=== PATIENT | female | born 1970 | race Caucasian/White ===

== ENCOUNTER 2021-10-04 09:49 | Emergency (ER) | payer BC ==
--- OUTSIDE RECORDS SUMMARY | 2021-10-04 09:52 | XMS REPORT | Continuity of Care Document ---
:1970 Author Organization [facility] t Address [address] [place] [address] Care Team Providers Name Role Phone RADIOLOGY Attending Clinician Unavailable COBIAN Attending Clinician Unavailable Payers Payer Name Policy Type Policy Number Effective Date Expiration Date Dmitry [facility] [id number] 2016 00:00:00 Problems This patient has no known problems. Allergies, Adverse Reactions, Alerts Allergy Allergy Status Severity Reaction(s) Onset Inactive Treating Comm ents Source Name Type Date Date Clinician Sulfa DA Active SV 2017- [facility]ona [facility] Antibiot [facility] [place] Sulfa DA Active SV [facility] (Sulfona 9-19 [facility] Antibiot [facility] l of ics[facility] [place] Macrolid DA Active U 1999-0 [facility] e 4[facility]13 [facility] [place] codeine DA Active U 2000-0 [facility] 4[facility] [place] erythrom DA Active U 2000-0 [facility] ycin 4-13 [facility] [place] Not DA Active U 2000-0 [facility] Converte 4-13 [facility] 316. 00:00: Hospita See 00 l of Text. [place] Not DA Active U 2000-0 [facility] Converte 4-13 [facility] 416. 00:00: Hospita See 00 l of Text. [place] NO KNOWN Drug Active [facility] Medications This patient has no known medications. Procedures This patient has no known procedures. Encounters Start End Encounter Admission Attending Care Care Encounter Source Date/Time Date/Time Type Type Clinicians Facility Department ID 2020-09-22 2020-09-22 Outpatient R RADIOLOGY [facility] [id number] Univers 15:00:00 15:00:00 [id number] [facility] 2020-03-05 2020-03-05 Outpatient R MANGO [facility] [id number] Univers 10:00:00 10:00:00 JANNIE [facility] Results Test Description Test Time Test Comments Results Result Sour e Yong Feng/STACEY 2018-06-11 TUB/OVA NEOPLASTIC 17:17:00 --------RUN DATE: 06/13/18 [facility] PAGE 1 RUN TIME: 0659 Specimen Inquiry RUN USER: INTERFACE --------PATIENT: [facility] SOARES [facility] [id number] AGE/SX: 48/F ROOM: [facility] RE06/08/18REG DR: Samantha Young MD : 66 BED: A DIS: 06/09/18 STATUS: DIS Dominic TLOC: -------- SPEC #: [id number] RECD: 06/08/18 STATUS: SABINE HUTCHINS #: [id number] GISELA: 06/08/18- DR: Samantha Young MD ENTERED: 06/08/18 SP TYPE: UTERNEO OTHR DR: Tiburcio De La Rosa MD ORDERED: LEVEL SURGIC, FROZEN SECTION CODES: [id number] - UTERUS, NOS [id number] - UMBILICAL REGIO COPIES TO: Tiburcio De La Rosa MD [address] [id number] Samantha Young MD [address] [address] PROCEDURES: LEVEL SURGIC (Incomplete) FROZEN SECTION (Incomplete) TISSUES: UTERUS, NOS - UTERUS, CERVIX, BILATERAL FALLOPIAN TUBES AND OVARIES UMBILICAL REGION - UMBILICAL KELOID CLINICAL HISTORY 48 year old, endometrial intraepithelial neoplasia (kr) FINAL DIAGNOSIS Specimen #1 uterus, hysterectomy: - cervix - no involvement by carcinoma - endometrium - 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) - no lymphvascular space invasion identified - prognostic markers ER/UT pending on block F - MSI testing pending on block F - myometrium - no myometrial invasion present - multiple leiomyomas - serosa - no pathologic diagnosis - ovary and fallopian tube, right, resection - no pathologic diagnosis - ovary and fallopian tube, left, resection - regressing corpus luteum Specimen #2 skin, umbilicus, excision: - scar CONTINUED ON NEXT PAGE --------RUN DATE: 10/10/18 [facility] PAGE 2 RUN TIME: 658 Specimen Inquiry RUN USER: INTERFACE --------SPEC #: [id number] PATIENT: PAT SOARES #[id number] (Continued) FINAL DIAGNOSIS (Continued) ADDENDUM PENDING, SPECIMEN IS BEING SENT TO [employer] code 1 CPT code(s): 86052, 42007 cds/wpd 06/11/18 @ 1717 GROSS DESCRIPTION Specimen #1 is received without fixative labeled with the patient's name and designated "uterus, cervix, and bilateral tubes and ovaries". It consists of a 12 x 11 x 9 cm hysterectomy specimen with bilateral adnexa attached. The uterus weighs 214 gm. The serosa is gray, smooth, and glistening and contains a 0.5 cm pedunculated subserosal nodule in the upper anterior wall and a 0.6 cm subserosal firm nodule in the lower posterior wall. The cervical external os measures 1.0 cm. The portio vaginalis measures 2.2 cm. Dentist Attendant sections are submitted labeled A - anterior cervix and lower uterine segment and B - posterior cervix and lower uterine segment. The endometrium measures 0.1 cm and contains a santiago-gray, soft nodular lesion measuring up to 5 cm in maximum dimension and 1.5 cm thick, extending to the lower anterior and posterior endometrial maya but not the cervical canal. The myometrium measures up to 3.5 cm thick with no discrete evidence of endometrial mass extending into the underlying myometrium. The myometrium also contains gray-white, firm nodules ranging from 0.6 to 5.0 cm with no identifiable degenerative change. One section of the endometrial mass with underlying myometrium from the upper anterior wall is submitted labeled FS and additional sections are submitted labeled C - endomyometrium and serosa with subserosal firm nodules and the largest firm nodule, D through F - inventory representative sections of endometrial mass with underlying myometrium from the lower anterior to the upper anterior wall, G and H - inventory representative sections of the endometrial mass with underlying myometrium from the lower to upper posterior wall. The right adnexa consists of a 3.5 x 2.5 x 1.9 cm ovary with an attached 7 x 0.6 x 0.6 cm segment of fallopian tube with fimbria. No gross lesion is noted. One section of ovary and the entire tube are submitted labeled I and J. The left adnexa consists of a 3.7 x 3.0 x 2.7 cm ovary with an attached 6 x 0.6 x 0.6 cm segment of fallopian tube with fimbria. The ovary contains cysts measuring up to 0.5 cm with smooth and glistening internal linings, containing clear, thin fluid. One section of the ovary and the entire tube are submitted labeled K and L. cary 06/08/18 @ 1011 Specimen #2 is received in a formalin-filled container, labeled with the patient's name, and designated "umbilical keloid". The specimen consists of an unoriented 1.8 x 0.7 cm light gray skin with underlying off-white, firm tissue measuring 0.5 cm. It is sectioned into three pieces and is submitted in toto labeled M. cary 06/08/18 @ 1316 CONTINUED ON NEXT PAGE --------RUN DATE: 06/13/18 [facility] PAGE 3 RUN TIME: 658 Specimen Inquiry RUN USER: INTERFACE --------SPEC #: [id number] PATIENT: PAT SOARES #[id number] (Continued) MICROSCOPIC DESCRIPTION The endometrium contains a well to moderately-differenti ated endometrioid adenocarcinoma with the following attributes: Procedure: Total hysterectomy and bilateral salpingo-oophorectomy Specimen integrity: Intact Tumor site: Polypoid mass of endometrium Tumor size: 5 cm Histologic type: Endometrioid carcinoma with squamous differentiation Histologic grade: FIGO Grade 2 Myometrial invasion: Not identified Adenomyosis: Not identified Uterine serosal involvement: Not identified Lower uterine segment involvement: Tumor extends to lower uterine segment Cervical stromal involvement: Not identified Other organ involvement: Not identified Lymphvascular space invasion: Not identified Lymph nodes: No lymph nodes submitted Pathologic Stage Classification: pT1a pNX Additional pathologic findings: Multiple leiomyomas cds/wpd 06/11/18 @ 1714 Signed Diego Guillory 06/11/18 1717 -------- END OF REPORT LORI W/WO 2018-06-11 TUB/OVA NEOPLASTIC 17:17:00 --------RUN DATE: 06/19/18 [facility] PAGE 1 RUN TIME: 1638 Specimen Inquiry RUN USER: INTERFACE --------[facility]: [id number] AGE/SX: 48/F ROOM: 260 RE06/08/18REG DR: Samantha Young MD : 66 BED: A DIS: 06/09/18 STATUS: DIS Dominic TLOC: -------- SPEC #: [id number] RECD: 06/08/18 STATUS: SABNIE HUTCHINS #: [id number] GISELA: 06/08/18- SUBM DR: Samantha Young MD ENTERED: 06/08/18 SP TYPE: UTERNEO OTHR DR: Tiburcio De La Rosa MD ORDERED: LEVEL SURGIC, FROZEN SECTION ADDENDUM FINDINGS Addendum #1 Entered: 06/16/181010 The following results are received from Denys Alvarado M.D., at [facility], [place], [place] on June 16, 2018. BODY SITE: Endometrial mass [id number] HISTOLOGY ANALYSIS / MULTIPLE MARKED PANEL ER: POSITIVE PgR: POSITIVE Stains were scored by a pathologist using manual microscopy. All controls were reveiwed and showed appropriate positive and negative reactivity. I acknowledge the above findings. ____ CBrien Guillory M.D., Pathologist/ksr June 16, 2018 @ 1008 Addendum Signed Diego Guillory 06/19/181637 (prelim) Diego Guillory 06/19/18 1638 -------- CODES: [id number] - UTERUS, NOS [id number] - UMBILICAL REGIO COPIES TO: Tiburcio De La Rosa MD [address] [place] [id number] CONTINUED ON NEXT PAGE --------RUN DATE: 06/19/18 [facility] PAGE 2 RUN TIME: 1638 Specimen Inquiry RUN USER: INTERFACE --------SPEC #: [id number] PATIENT: PAT SOARES #[id number] (Continued) COPIES TO: (Continued) Samantha Young MD [address] [place], [place] [id number] PROCEDURES: LEVEL SURGIC (Incomplete) FROZEN SECTION (Incomplete) TISSUES: UTERUS, NOS - UTERUS, CERVIX, BILATERAL FALLOPIAN TUBES AND OVARIES UMBILICAL REGION - UMBILICAL KELOID CLINICAL HISTORY 48 year old, endometrial intraepithelial neoplasia (kr) FINAL DIAGNOSIS Specimen #1 uterus, hysterectomy: - cervix - no involvement by carcinoma - endometrium - 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) - no lymphvascular space invasion identified - prognostic markers ER/UT pending on block F - MSI testing pending on block F - myometrium - no myometrial invasion present - multiple leiomyomas - serosa - no pathologic diagnosis - ovary and fallopian tube, right, resection - no pathologic diagnosis - ovary and fallopian tube, left, resection - regressing corpus luteum Specimen #2 skin, umbilicus, excision: - scar ADDENDUM PENDING, SPECIMEN IS BEING SENT TO [employer] code 1 CPT code(s): 47668, 31907 cds/wpd 06/11/18 @ 1715 GROSS DESCRIPTION Specimen #1 is received without fixative labeled with the patient's name and designated "uterus, cervix, and bilateral tubes and ovaries". It consists of a 12 x 11 x 9 cm hysterectomy specimen with bilateral adnexa attached. The uterus weighs 214 gm. The serosa is gray, smooth, and glistening and contains a 0.5 cm pedunculated subserosal nodule in the upper anterior wall and a 0.6 cm subserosal firm nodule in the lower posterior wall. CONTINUED ON NEXT PAGE --------RUN DATE: 06/19/18 [facility] PAGE 3 RUN TIME: 1638 Specimen Inquiry RUN USER: INTERFACE --------SPEC #: [id number] PATIENT: PAT SOARES #[id number] (Continued) GROSS DESCRIPTION (Continued) The cervical external os measures 1.0 cm. The portio vaginalis measures 2.2 cm. Dentist Attendant sections are submitted labeled A - anterior cervix and lower uterine segment and B - posterior cervix and lower uterine segment. The endometrium measures 0.1 cm and contains a santiago-gray, soft nodular lesion measuring up to 5 cm in maximum dimension and 1.5 cm thick, extending to the lower anterior and posterior endometrial maya but not the cervical canal. The myometrium measures up to 3.5 cm thick with no discrete evidence of endometrial mass extending into the underlying myometrium. The myometrium also contains gray-white, firm nodules ranging from 0.6 to 5.0 cm with no identifiable degenerative change. One section of the endometrial mass with underlying myometrium from the upper anterior wall is submitted labeled FS and additional sections are submitted labeled C - endomyometrium and serosa with subserosal firm nodules and the largest firm nodule, D through F - inventory representative sections of endometrial mass with underlying myometrium from the lower anterior to the upper anterior wall, G and H - inventory representative sections of the endometrial mass with underlying myometrium from the lower to upper posterior wall. The right adnexa consists of a 3.5 x 2.5 x 1.9 cm ovary with an attached 7 x 0.6 x 0.6 cm segment of fallopian tube with fimbria. No gross lesion is noted. One section of ovary and the entire tube are submitted labeled I and J. The left adnexa consists of a 3.7 x 3.0 x 2.7 cm ovary with an attached 6 x 0.6 x 0.6 cm segment of fallopian tube with fimbria. The ovary contains cysts measuring up to 0.5 cm with smooth and glistening internal linings, containing clear, thin fluid. One section of the ovary and the entire tube are submitted labeled K and L. heather/kalee 06/08/18 @ 1011 Specimen #2 is received in a formalin-filled container, labeled with the patient's name, and designated "umbilical keloid". The specimen consists of an unoriented 1.8 x 0.7 cm light gray skin with underlying off-white, firm tissue measuring 0.5 cm. It is sectioned into three pieces and is submitted in toto labeled M. hzjake 06/08/18 @ 3698 MICROSCOPIC DESCRIPTION The endometrium contains a well to moderately-differenti ated endometrioid adenocarcinoma with the following attributes: Procedure: Total hysterectomy and bilateral salpingo-oophorectomy Specimen integrity: Intact Tumor site: Polypoid mass of endometrium Tumor size: 5 cm Histologic type: Endometrioid carcinoma with squamous differentiation Histologic grade: FIGO Grade 2 Myometrial invasion: Not identified Adenomyosis: Not identified CONTINUED ON NEXT PAGE --------RUN DATE: 06/19/18 [facility] PAGE 4 RUN TIME: 1638 Specimen Inquiry RUN USER: INTERFACE --------SPEC #: [id number] PATIENT: PAT SOARES #[id number] (Continued) MICROSCOPIC DESCRIPTION (Continued) Uterine serosal involvement: Not identified Lower uterine segment involvement: Tumor extends to lower uterine segment Cervical stromal involvement: Not identified Other organ involvement: Not identified Lymphvascular space invasion: Not identified Lymph nodes: No lymph nodes submitted Pathologic Stage Classification: pT1a pNX Additional pathologic findings: Multiple leiomyomas cds/wpd 10/08/18 @ 1714 Signed Diego Guillory 06/11/18 1717 -------- END OF REPORT UTERUS W/WO 2018-06-11 TUB/OVA [place] 17:17:00 --------RUN DATE: 06/21/18 [facility] PAGE 1 RUN TIME: 1354 Specimen Inquiry RUN USER: INTERFACE --------PATIENT: PAT SOARES LOC: [facility] U #: [id number] AGE/SX: 48/F ROOM: [facility] RE06/08/18REG DR: Samantha Young MD : 66 BED: A DIS: 06/09/18 STATUS: DIS Dominic TLOC: -------- SPEC #: [id number] RECD: 06/08/18 STATUS: SABINE HUTCHINS #: [id number] GISELA: 06/08/18- SUBM DR: Samantha Young MD ENTERED: 06/08/18 SP TYPE: UTERNEO OTHR DR: Tiburcio De La Rosa MD ORDERED: LEVEL SURGIC, FROZEN SECTION ADDENDUM FINDINGS Addendum #2 Entered: 06/21/18 The following is the final MSI report received from [employer], June 21, 2018. RESULTS: MSI Not Detected Instability level - Instability Not Detected COMMENTS: This tumor showed no microsatellite instability by PCR. It is unlikely that this patient has Bowen syndrome (hereditary non-polyposis colorectal cancer, HNPCC). A small percentage of uterine adenocarcinoma in HNPCC patients are microsatellite stable. Microsatellite stability in this neoplasm is typically associated with expression of the main mistmatch repair proteins (MLH1, MSH2, MSH6 and PMS2). I acknowledge the above findings. ____ Pranav Guillory M.D., Pathologist/ksr June 21, 2018 @ 0891 Addendum Signed Diego Guillory 06/21/18 1354 (prelim) PastoraDiego 06/21/18 1354 -------- Addendum #1 Entered: 06/16/18-1010 The following results are received from Denys Alvarado M.D., at [facility], [place], [place] on June 16, 2018. BODY SITE: Endometrial mass [id number] HISTOLOGY ANALYSIS / MULTIPLE MARKED PANEL CONTINUED ON NEXT PAGE --------RUN DATE: 06/21/18 [facility] PAGE 2 RUN TIME: 1354 Specimen Inquiry RUN USER: INTERFACE --------SPEC #: [id number] PATIENT: FANYPAT #[id number] (Continued) ADDENDUM FINDINGS (Continued) ER: POSITIVE PgR: POSITIVE Stains were scored by a pathologist using manual microscopy. All controls were reveiwed and showed appropriate positive and negative reactivity. I acknowledge the above findings. ____ Pranav Guillory M.D., Pathologist/ksr June 16, 2018 @ 1008 Addendum Signed Diego Guillory 06/19/181637 (prelim) iDego Guillory 06/19/181637 -------- CODES: [id number] - UTERUS, NOS [id number] - UMBILICAL REGIO COPIES TO: Tiburcio De La Rosa MD [address] [facility] [address] [place], [place] [address] Samantha Young MD [address] [place], [place] [id number] PROCEDURES: LEVEL SURGIC (Incomplete) FROZEN SECTION (Incomplete) TISSUES: UTERUS, NOS - UTERUS, CERVIX, BILATERAL FALLOPIAN TUBES AND OVARIES UMBILICAL REGION - UMBILICAL KELOID CLINICAL HISTORY 48 year old, endometrial intraepithelial neoplasia (kr) CONTINUED ON NEXT PAGE --------RUN DATE: 06/21/18 [facility] PAGE 3 RUN TIME: 1354 Specimen Inquiry RUN USER: INTERFACE --------SPEC #: [id number] PATIENT: PAT SOARES #[id number] (Continued) FINAL DIAGNOSIS Specimen #1 uterus, hysterectomy: - cervix - no involvement by carcinoma - endometrium - 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) - no lymphvascular space invasion identified - prognostic markers ER/UT pending on block F - MSI testing pending on block F - myometrium - no myometrial invasion present - multiple leiomyomas - serosa - no pathologic diagnosis - ovary and fallopian tube, right, resection - no pathologic diagnosis - ovary and fallopian tube, left, resection - regressing corpus luteum Specimen #2 skin, umbilicus, excision: - scar ADDENDUM PENDING, SPECIMEN IS BEING SENT TO [employer] code 1 CPT code(s): 33500, 07392 cds/wpd 06/11/18 @ 1713 GROSS DESCRIPTION Specimen #1 is received without fixative labeled with the patient's name and designated "uterus, cervix, and bilateral tubes and ovaries". It consists of a 12 x 11 x 9 cm hysterectomy specimen with bilateral adnexa attached. The uterus weighs 214 gm. The serosa is gray, smooth, and glistening and contains a 0.5 cm pedunculated subserosal nodule in the upper anterior wall and a 0.6 cm subserosal firm nodule in the lower posterior wall. The cervical external os measures 1.0 cm. The portio vaginalis measures 2.2 cm. Dentist Attendant sections are submitted labeled A - anterior cervix and lower uterine segment and B - posterior cervix and lower uterine segment. The endometrium measures 0.1 cm and contains a santiago-gray, soft nodular lesion measuring up to 5 cm in maximum dimension and 1.5 cm thick, extending to the lower anterior and posterior endometrial maya but not the cervical canal. The myometrium measures up to 3.5 cm thick with no discrete evidence of endometrial mass extending into the underlying myometrium. The myometrium also contains gray-white, firm nodules ranging from 0.6 to 5.0 cm with no identifiable degenerative change. One section of the endometrial mass with underlying myometrium from the upper anterior wall is submitted labeled FS and additional sections are submitted labeled C - endomyometrium and serosa with subserosal firm nodules and the largest firm nodule, D through F - inventory representative sections of endometrial mass with underlying myometrium from the lower anterior to the upper anterior wall, G and H - inventory representative sections of the endometrial mass with underlying myometrium from the lower to upper posterior wall. CONTINUED ON NEXT PAGE --------RUN DATE: 06/21/18 [facility] PAGE 4 RUN TIME: 1354 Specimen Inquiry RUN USER: INTERFACE --------SPEC #: [id number] PATIENT: PAT SOARES #[id number] (Continued) GROSS DESCRIPTION (Continued) The right adnexa consists of a 3.5 x 2.5 x 1.9 cm ovary with an attached 7 x 0.6 x 0.6 cm segment of fallopian tube with fimbria. No gross lesion is noted. One section of ovary and the entire tube are submitted labeled I and J. The left adnexa consists of a 3.7 x 3.0 x 2.7 cm ovary with an attached 6 x 0.6 x 0.6 cm segment of fallopian tube with fimbria. The ovary contains cysts measuring up to 0.5 cm with smooth and glistening internal linings, containing clear, thin fluid. One section of the ovary and the entire tube are submitted labeled K and L. cary 06/08/18 @ 1011 Specimen #2 is received in a formalin-filled container, labeled with the patient's name, and designated "umbilical keloid". The specimen consists of an unoriented 1.8 x 0.7 cm light gray skin with underlying off-white, firm tissue measuring 0.5 cm. It is sectioned into three pieces and is submitted in toto labeled M. cary 06/08/18 @ 1316 MICROSCOPIC DESCRIPTION The endometrium contains a well to moderately-differenti ated endometrioid adenocarcinoma with the following attributes: Procedure: Total hysterectomy and bilateral salpingo-oophorectomy Specimen integrity: Intact Tumor site: Polypoid mass of endometrium Tumor size: 5 cm Histologic type: Endometrioid carcinoma with squamous differentiation Histologic grade: FIGO Grade 2 Myometrial invasion: Not identified Adenomyosis: Not identified Uterine serosal involvement: Not identified Lower uterine segment involvement: Tumor extends to lower uterine segment Cervical stromal involvement: Not identified Other organ involvement: Not identified Lymphvascular space invasion: Not identified Lymph nodes: No lymph nodes submitted Pathologic Stage Classification: pT1a pNX Additional pathologic findings: Multiple leiomyomas cds/wpd 06/11/18 @ 1714 Signed Diego Guillory 06/11/18 1717 -------- END OF REPORT
--- NOTE | 2021-10-04 11:52 | RAD REPORT ---
EXAM DESCRIPTION: RAD - Chest Pa And Lat (2 Views) - 10/04/2021 10:40 am CLINICAL HISTORY: COUGH Chest pain. COMPARISON: CHEST PA AND LAT 2 VIEW dated 01/02/2014; CHEST PA AND LAT 2 VIEW dated 08/05/2013; CHEST P A AND LAT 2 VIEW dated 07/30/2013; CHEST SINGLE VIEW dated 07/28/2013 TECHNIQUE: PA and lateral views of the chest were obtained. FINDINGS: The lungs are hyperexpanded compatible with COPD. The heart is upper limit of normal in si ze. No fracture or aggressive bony process. IMPRESSION: COPD without acute process identified.
[2021-10-04] MEDS ORDERED: BENZONATATE 100 MG CAP PO ONE (12:46)
[2021-10-04] MEDS ORDERED: NA CHLORIDE 0.9% 1,000 ML ONE ×2 (12:48→14:27)
[2021-10-04] MEDS ORDERED: FAMOTIDINE 20 MG/2 ML VIAL IV ONE (12:48)
[2021-10-04] MEDS ORDERED: ONDANSETRON 4 MG/2 ML VIAL ONE (12:48)
[2021-10-04 12:52] LABS: Urine Blood Negative (Negative); Urine Glucose 3+ (Negative); Urine Protein Trace (Negative); Urine pH 5.5 (5.0-7.0)
[2021-10-04 13:00] LABS: Urine Bacteria <20 /HPF (<20); Urine Mucus 1+ /HPF (NONE SEEN); Urine RBC <5 /HPF (NONE SEEN)
[2021-10-04 13:01] LABS: Urine Yeast PRESENT (NONE SEEN)
[2021-10-04 13:20] LABS: Hematocrit 42.5 % (36.0-45.0); Lymphocytes % 27.5 % (15.3-44.8); MPV 9.3 fL (7.6-11.3); RBC Red Blood Cell Count 4.66 M/uL (3.86-4.86)
[2021-10-04 13:26] LABS: ALT/SGPT 284 U/L (12-78); AST/SGOT 154 U/L (15-37); Albumin 3.8 g/dL (3.4-5.0); Alkaline Phosphatase 165 U/L (45-117); BUN Blood Urea Nitrogen 17 mg/dL (7-18); Bicarbonate 28 mmol/L (21-32); Bilirubin Direct 0.2 mg/dL (0-0.2); Bilirubin Total 0.6 mg/dL (0.2-1.0); Glucose Level 318 mg/dL (74-106); Lipase 138 U/L (73-393); Potassium 3.8 mmol/L (3.5-5.1); Protein, Total 8.1 g/dL (6.4-8.2); Sodium Level 133 mmol/L (136-145)
--- NOTE | 2021-10-04 14:44 | ER ---
Nurse's Notes [facility] Name: Donna Rodríguez Age: 51 yrs Sex: Female : 1970 Arrival Date: 10/04/2021 Time: 09:51 Bed 12 Private MD: Tiburcio De La Rosa Diagnosis: Diabetes mellitus due to underlying condition with hyperglycemia;Cough Presentation: 10/04 10:12 Chief complaint: Patient states: "I had COVID September 10. I have had 2 negative tests ss since then, but I can't get rid of this cough and it feels like there is a lump in my throat. I've had a real dry mouth during this sickness and I checked my blood sugar this morning and it was 415. Diabetes runs in my family on both sides.". Coronavirus screen: Client denies travel out of the [place] in the last 14 days. Ebola Screen: Patient denies exposure to infectious person. Patient denies travel to an Ebola-affected area in the 21 days before illness onset. Initial Sepsis Screen: Does the patient meet any 2 criteria? No. Patient's initial sepsis screen is negative. Does the patient have a suspected source of infection? No. Patient's initial sepsis screen is negative. Risk Assessment: Do you want to hurt yourself or someone else? Patient reports no desire to harm self or others. Onset of symptoms was September 10, 2020. 10:12 Method Of Arrival: Ambulatory ss 10:12 Acuity: RADHA 3 ss Triage Assessment: 15:08 General: Appears in no apparent distress. comfortable, Behavior is calm, cooperative, ld1 appropriate for age. Neuro: Level of Consciousness is awake, alert, obeys commands, Oriented to person, place, time, situation. Respiratory: Airway is patent Respiratory effort is even, unlabored, Respiratory pattern is regular, symmetrical. 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 - Social history:: Smoking status: Patient denies any tobacco usage or history of. Screenin:17 Abuse screen: Denies threats or abuse. Denies injuries from another. Nutritional ss screening: No deficits noted. Tuberculosis screening: Never had TB. Fall Risk None identified. Assessment: 10:17 Reassessment: BIBIANA Ruth seeing patient in triage at this time. ss 13:04 Reassessment: Patient appears in no apparent distress at this time. No changes from ld1 previously documented assessment. Patient and/or family updated on plan of care and expected duration. Pain level reassessed. Pain: Denies pain. Respiratory: Airway is patent Respiratory effort is even, unlabored, Respiratory pattern is regular, symmetrical, Breath sounds are clear bilaterally. EENT: Throat is pink. 13:58 Reassessment: Patient appears in no apparent distress at this time. No changes from ld1 previously documented assessment. Patient and/or family updated on plan of care and expected duration. Pain level reassessed. Patient is alert, oriented x 3, equal unlabored respirations, skin warm/dry/pink. Vital Signs: 10:12 Pulse 90; Resp 16; Temp 98.6(O); Pulse Ox 96% on R/A; Weight 90.26 kg; Height 5 ft. 2 ss in. (157.48 cm); Pain 0/10; 10:15 BP 130 / 89; ss 13:04 BP 128 / 87; Pulse 86; Resp 18; Pulse Ox 98% on R/A; ld1 13:58 BP 133 / 92; Pulse 82; Resp 18; Pulse Ox 97% on R/A; ld1 10:12 Body Mass Index 36.40 (90.26 kg, 157.48 cm) ED Course: 09:51 Patient arrived in ED. as 09:52 Tiburcio De La Rosa MD is Private Physician. as 10:15 Triage completed. ss 10:15 Arm band placed on right wrist. ss 10:19 Jordin Hamlin PA is PHCP. cp 10:19 Ahsan Cook MD is Attending Physician. cp 10:23 Strep Sent. ss 10:36 XRAY Chest Pa And Lat (2 Views) In Process Unspecified. EDMS 12:03 Sade Weiner, JUNIOR is Primary Nurse. [facility] 12:09 Patient has correct armband on for positive identification. Bed in low position. Call [facility] light in reach. Pulse ox on. NIBP on. 12:09 Urine collected:. [facility] 12:10 Urine Microscopic Only Sent. 5 12:52 Urine collected: clean catch specimen, cloudy. mh5 13:04 Inserted saline lock: 20 gauge in right antecubital area, using aseptic technique. ld1 Blood collected. 13:04 No provider procedures requiring assistance completed. ld1 14:28 Hemoglobin A1c Sent. ld1 14:33 US Abdomen Limited In Process Unspecified. EDVA 14:43 Tiburcio De La Rosa MD is Referral Physician. cp 15:09 IV discontinued, intact, bleeding controlled, No redness/swelling at site. ld1 Administered Medications: 13:04 Drug: Tessalon Perle (benzonatate) 200 mg Route: PO; ld1 14:44 Follow up: Response: No adverse reaction ld1 13:04 Drug: Zofran (Ondansetron) 4 mg Route: IVP; Site: right antecubital; ld1 14:43 Follow up: Response: No adverse reaction ld1 13:04 Drug: Pepcid (famotidine) 20 mg Route: IVP; Site: left antecubital; ld1 14:43 Follow up: Response: No adverse reaction ld1 13:04 Drug: NS 0.9% 1000 ml Route: IV; Rate: 1 bolus; Site: right antecubital; ld1 14:43 Follow up: Response: No adverse reaction; IV Status: Completed infusion; IV Intake: ld1 1000ml 14:30 Drug: NS 0.9% 1000 ml Route: IV; Rate: 1 bolus; Site: right antecubital; ld1 Intake: 14:43 IV: 1000ml; Total: 1000ml. ld1 Outcome: 14:44 Discharge ordered by MD. cp 15:08 Discharged to home ambulatory. ld1 15:08 Condition: stable 15:08 Discharge instructions given to patient, Instructed on discharge instructions, follow up and referral plans. medication usage, Demonstrated understanding of instructions, follow-up care, medications, Prescriptions given X 4. 15:09 Patient left the ED. ld1 Signatures: Dispatcher [employer] Blank Guido Shelby RN RN Jordin Will PA PA cp Martinez, Maria [facility] Martine Gonzalez RN RN 1 Sade Weiner RN RN 5
--- NOTE | 2021-10-04 14:45 | EDPHYS ---
Physician Documentation [facility] Name: Donna Rodríguez Age: 51 yrs Sex: Female : 1970 Arrival Date: 10/04/2021 Time: 09:51 Bed 12 Private MD: Tiburcio De La Rosa ED Physician Ahsan Cook HPI: 10/04 10:30 This 51 yrs old Female presents to ER via Ambulatory with complaints of High Blood cp Sugar, Cough, Sore Throat. 10:30 The patient or guardian reports cough, that is constant, with no sputum. cp 10:30 The patient or guardian reports hyperglycemia, that was potentially precipitated by no cp particular event. Onset: The symptoms/episode began/occurred 3-4 weeks ago, diagnosed with COVID-19 on 09-10-2021. Associated signs and symptoms: Pertinent positives: sore throat, Pertinent negatives: chest pain, diarrhea, ear ache, fever, vomiting. 10:30 Patient denies history of diabetes, but reports measuring elevated blood glucose level cp this morning. 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 - Social history:: Smoking status: Patient denies any tobacco usage or history of. ROS: 10:35 Constitutional: Negative for body aches, chills, fever, poor PO intake. cp 10:35 Eyes: Negative for injury, pain, redness, and discharge. cp 10:35 ENT: Positive for sore throat, Negative for drainage from ear(s), ear pain, difficulty swallowing, difficulty handling secretions. 10:35 Cardiovascular: Negative for chest pain, edema, palpitations. 10:35 Respiratory: Positive for cough, with no reported sputum, Negative for wheezing. 10:35 Abdomen/GI: Negative for abdominal pain, nausea, vomiting, and diarrhea. 10:35 : Negative for urinary symptoms. 10:35 Neuro: Negative for altered mental status, headache, weakness. 10:35 All other systems are negative. Exam: 10:40 Constitutional: The patient appears in no acute distress, alert, awake, cp non-diaphoretic, non-toxic, well developed, well nourished, obese. 10:40 Head/Face: Normocephalic, atraumatic. cp 10:40 Eyes: Periorbital structures: appear normal, Conjunctiva: normal, no exudate, no injection, Sclera: no appreciated abnormality, Lids and lashes: appear normal, bilaterally. 10:40 ENT: External ear(s): are unremarkable, Nose: is normal, Mouth: Lips: moist, Oral mucosa: pink and intact, moist, Posterior pharynx: Airway: no evidence of obstruction, patent, Tonsils: no enlargement, no erythema, no exudate, erythema, is not appreciated, exudate, is not appreciated. 10:40 Neck: ROM/movement: is normal, is supple, without pain, no range of motions limitations. 10:40 Chest/axilla: Inspection: normal. 10:40 Cardiovascular: Rate: normal, Rhythm: regular, Edema: is not appreciated, JVD: is not appreciated. 10:40 Respiratory: the patient does not display signs of respiratory distress, Respirations: normal, no use of accessory muscles, no retractions, labored breathing, is not present, Breath sounds: bronchial sounds, that are mild, are heard diffusely, stridor, is not appreciated, + upper airway congestion. wheezing: is not appreciated. 10:40 Abdomen/GI: Inspection: abdomen appears normal, Palpation: abdomen is soft and non-tender, in all quadrants. 10:40 Back: pain, is absent, ROM is normal. 10:40 Neuro: Orientation: to person, place \T\ time. Mentation: is normal, Motor: moves all fours, strength is normal, Sensation: is normal. Vital Signs: 10:12 Pulse 90; Resp 16; Temp 98.6(O); Pulse Ox 96% on R/A; Weight 90.26 kg; Height 5 ft. 2 ss in. (157.48 cm); Pain 0/10; 10:15 BP 130 / 89; ss 13:04 BP 128 / 87; Pulse 86; Resp 18; Pulse Ox 98% on R/A; ld1 13:58 BP 133 / 92; Pulse 82; Resp 18; Pulse Ox 97% on R/A; ld1 10:12 Body Mass Index 36.40 (90.26 kg, 157.48 cm) ss MDM: 12:07 Patient medically screened. 14:44 Data reviewed: vital signs, nurses notes, lab test result(s), radiologic studies, plain cp films. 14:44 Test interpretation: by ED physician or midlevel provider: ECG, plain radiologic cp studies. Counseling: I had a detailed discussion with the patient and/or guardian regarding: the historical points, exam findings, and any diagnostic results supporting the discharge/admit diagnosis, lab results, radiology results, the need for outpatient follow up, for definitive care, a family practitioner, to return to the emergency department if symptoms worsen or persist or if there are any questions or concerns that arise at home. Response to treatment: the patient's symptoms have markedly improved after treatment, and as a result, I will discharge patient. 10/04 10:21 Order name: Urine Microscopic Only; Complete Time: 13:38 10/04 13:38 Interpretation: Normal except: UWBC 5-10; SQEPI 5-10; YEAST PRESENT. 10/04 10:21 Order name: Strep; Complete Time: 12:33 10/04 10:31 Order name: Glucose, Ancillary Testing; Complete Time: 11:41 EDHI 10/04 11:41 Interpretation: Reviewed. 10/04 12:00 Order name: Throat Culture EDHI 10/04 12:41 Order name: Basic Metabolic Panel; Complete Time: 13:38 10/04 13:38 Interpretation: Normal except: NA 133; GLUC 318; GFR 65. 10/04 12:41 Order name: CBC with Diff; Complete Time: 13:38 10/04 13:38 Interpretation: Normal except: MCV 91.2. 10/04 12:41 Order name: Hepatic Function; Complete Time: 13:38 10/04 13:39 Interpretation: Normal except: AST 154; ALT 284; ALK 165; GLOB 4.3; A/G 0.9. 10/04 12:41 Order name: Lipase; Complete Time: 13:38 10/04 12:41 Order name: Ketone, Serum; Complete Time: 13:38 10/04 12:52 Order name: Urine Dipstick-Ancillary; Complete Time: 13:38 EDHI 10/04 13:39 Interpretation: Normal except: UGLUC 3+; UKET 1+; UPROT Trace. 10/04 13:02 Order name: Urine Culture EDHI 10/04 14:11 Order name: Hemoglobin A1c; Complete Time: 14:36 EDHI 10/04 14:37 Interpretation: Abnormal: HA1C 10.3. 10/04 14:51 Order name: Glucose, Ancillary Testing EDHI 10/04 10:21 Order name: XRAY Chest Pa And Lat (2 Views); Complete Time: 12:33 10/04 10:21 Order name: Urine Dipstick-Ancillary (obtain specimen); Complete Time: 12:10 10/04 10:21 Order name: Accucheck Blood Glucose; Complete Time: 10:23 10/04 12:41 Order name: IV Saline Lock; Complete Time: 13:04 10/04 12:41 Order name: Labs collected and sent; Complete Time: 13:04 10/04 14:10 Order name: US Abdomen Limited 10/04 14:11 Order name: Accucheck Blood Glucose; Complete Time: 14:43 cp Administered Medications: 13:04 Drug: Tessalon Perle (benzonatate) 200 mg Route: PO; ld1 14:44 Follow up: Response: No adverse reaction ld1 13:04 Drug: Zofran (Ondansetron) 4 mg Route: IVP; Site: right antecubital; ld1 14:43 Follow up: Response: No adverse reaction ld1 13:04 Drug: Pepcid (famotidine) 20 mg Route: IVP; Site: left antecubital; ld1 14:43 Follow up: Response: No adverse reaction ld1 13:04 Drug: NS 0.9% 1000 ml Route: IV; Rate: 1 bolus; Site: right antecubital; ld1 14:43 Follow up: Response: No adverse reaction; IV Status: Completed infusion; IV Intake: ld1 1000ml 14:30 Drug: NS 0.9% 1000 ml Route: IV; Rate: 1 bolus; Site: right antecubital; ld1 Disposition Summary: 10/04/21 14:44 Discharge Ordered Location: Home cp Problem: new cp Symptoms: have improved cp Condition: Stable cp Diagnosis - Diabetes mellitus due to underlying condition with hyperglycemia cp - Cough cp Followup: cp - With: Tiburcio De La Rosa MD - When: Today - Reason: Recheck today's complaints Discharge Instructions: - Discharge Summary Sheet cp - Hyperglycemia cp - Form - Daily Diabetes Record cp - Blood Glucose Monitoring, Adult cp - Diabetes Mellitus and Nutrition, Adult cp - Cough, Adult cp Forms: - Medication Reconciliation Form cp - Thank You Letter cp - Antibiotic Education cp - Prescription Opioid Use cp Prescriptions: - Advair Diskus 100-50 mcg/dose Inhalation blister with device - inhale 1 puff by INHALATION route 2 times per day approximately 12 hours apart; cp 1 Inhaler; Refills: 0, Product Selection Permitted - albuterol sulfate 90 mcg/actuation Inhalation HFA aerosol inhaler - inhale 1 puff by INHALATION route every 4-6 hours; 1 Inhaler; Refills: 0, cp Product Selection Permitted - Tessalon Perles 100 mg Oral Capsule - take 2 capsule by ORAL route every 8 hours As needed; 20 capsule; Refills: 0, cp Product Selection Permitted - Metformin 500 mg Oral Tablet - take 1 tablet by ORAL route once daily for 7 days Then take 1 tablet with cp morning meals AND evening meals; 60 tablet; Refills: 0, Product Selection Permitted - Diflucan 150 mg Oral Tablet - take 1 tablet by ORAL route one time for 1 day; 1 tablet; Refills: 0, Product cp Selection Permitted Addendum: 10/05/2021 18:21 Co-signature as Attending Physician, Ahsan Cook MD. r n Signatures: Dispatcher [employer] [facility] Ahsan Cook MD MD rn Smirch, Shelby, RN RN ss Page, Corey, PA PA cp Martine Gonzalez RN RN ld1 Corrections: (The following items were deleted from the chart) 10/04 12:42 12:41 HEMOGLOBIN A1C+CHEM A1C.LAB.BRZ ordered. [facility] 14:45 14:44 COPD/ Chronic obstructive pulmonary disease with (acute) exacerbation cp cp 10/05 14:27 14:24 Patient denies history of diabetes, but reports measuring elevated blood glucose cp level over past several days. cp
--- NOTE | 2021-10-04 14:47 | RAD REPORT ---
EXAM DESCRIPTION: US - Abdomen Exam Limited - 10/04/2021 2:33 pm CLINICAL HISTORY: elevated liver enzymes COMPARISON: CT ABD PELVIS W CONTRAST dated 06/02/2009 FINDINGS: The liver demonstrates diffuse fatty infiltration.No focal liver lesion or intrahepatic bi liary dilatation.No evidence of portal vein thrombosis. Common bile duct measures 5 millimeters. Cholecystectomy. IMPRESSION: Hepatic steatosis. Cholecystectomy. No biliary ductal dilatation.
[2021-10-04 15:27] VITALS: TEMP 98.6
[2021-10-04 15:31] VITALS: BP 133/92; O2SAT 97
== END 2021-10-04 15:09 | disposition home or self-care (01) ==
LOC: ER 09:49
DX: E11.65 Type 2 diabetes mellitus with hyperglycemia (principal); R05.9 Cough, unspecified; E03.9 Hypothyroidism, unspecified; Z88.2 Allergy status to sulfonamides
CPT/HCPCS: 87070; 87088; 85025; 87086; 80048; 36415; 82010; 82947 ×2; 80076; 87081; 83036; 83690; 71046; 76705; 99284; J7030 ×2; J2405; 81003; 81015